=== PATIENT | female | born 1965 ===

== ENCOUNTER 2018-03-11 14:32 | Inpatient (IN) ==
[2018-03-11] MEDS ORDERED: DEXTROSE 50% 25 GM/50 ML VIAL IV PRN (17:18)
[2018-03-11] MEDS ORDERED: GLUCAGON 1 MG VIAL IM PRN (17:18)
[2018-03-11] MEDS ORDERED: LABETALOL 20 MG/4 ML SYRINGE IV PRN (17:47)
[2018-03-11 18:14] LABS: Basophils # 0.1 10*3/uL (0.0-0.2); Basophils % 0.8 % (0.0-0.8); Eosinophils # 0.2 10*3/uL (0.0-0.87); Eosinophils % 2.1 % (0.00-10.9); Hemoglobin 12.1 GM/DL (12.0-16.0); Immature Granulocytes % 0.3 %; Immature Granulocytes Absolute 0.04 #; Lymphocytes # 1.3 10*3/uL (1.4-4.0); Lymphocytes % 10.8 % (21.3-54.2); Mean Corpuscular HGB Conc 32.7 GM/DL (32-36); Mean Corpuscular Hemoglobin 29 PG (27-34); Mean Corpuscular Volume 88.3 FL (87-102); Mean Platelet Volume 9.3 FL (9.6-12.0); Monocytes # 0.6 10*3/uL (0.11-0.8); Monocytes % 4.7 % (1.7-12.7); Neutrophils # 9.5 10*3/uL (1.4-7.4); Neutrophils % 81.3 % (38.7-73.9); Platelet Count 374 T/CUMM (130-400); Red Blood Count 4.19 MC/CUMM (3.8-5.5); White Blood Count 11.7 T/CUMM (4-12)
[2018-03-11 18:30] LABS: Calcium 8.4 MG/DL (8.5-10.1); Osmolality,Calculated 301.3 MOS/KG (273-304); Potassium 4.5 MMOL/L (3.5-5.1)
[2018-03-11] MEDS: CARVEDILOL 25 MG TABLET PO SCH (20:06)
[2018-03-11] MEDS: SODIUM CHLORIDE 0.9% 1,000 ML IV SCH (20:11)
[2018-03-11 20:24] LABS: Apearance,Urine Slightly Hazy (Clear); Bilirubin,Urine Negative (Negative); Blood, Urine Small mg/dL (Negative); Glucose,Urine (UA) >=500 mg/dL (Negative); Ketones,Urine Negative (Negative); Mucus,Urine Occasional /LPF (Occasional); Nitrite,Urine Negative (Negative); Protein,Urine >=500 MG/DL; RBC,Urine 40 /HPF (0-4); Squamous Epithelial Cell,Urine Occasional /HPF (0-10); Urine Color Yellow (Yellow); Urine Urobilinogen < 2.0 EU/DL (0.2-1.0); WBC,Urine 2 /HPF (0-6)
[2018-03-11] MEDS: PRAVASTATIN 40 MG TABLET PO SCH (20:49)
[2018-03-11] MEDS: INSULIN LISPRO 100 UNIT/ML SUBCUT SCH (20:49)
[2018-03-12] MEDS: SODIUM CHLORIDE 0.9% 1,000 ML IV SCH ×2 (06:16→18:26)
[2018-03-12 06:35] LABS: Basophils # 0.1 10*3/uL (0.0-0.2); Basophils % 0.9 % (0.0-0.8); Eosinophils # 0.2 10*3/uL (0.0-0.87); Eosinophils % 2.2 % (0.00-10.9); Immature Granulocytes % 0.4 %; Immature Granulocytes Absolute 0.04 #; Lymphocytes # 1.4 10*3/uL (1.4-4.0); Lymphocytes % 13.9 % (21.3-54.2); Mean Corpuscular HGB Conc 32.4 GM/DL (32-36); Mean Corpuscular Hemoglobin 29 PG (27-34); Mean Corpuscular Volume 90.2 FL (87-102); Mean Platelet Volume 9.7 FL (9.6-12.0); Monocytes # 0.7 10*3/uL (0.11-0.8); Monocytes % 6.6 % (1.7-12.7); Neutrophils # 7.6 10*3/uL (1.4-7.4); Platelet Count 361 T/CUMM (130-400); Red Blood Count 3.77 MC/CUMM (3.8-5.5); White Blood Count 10.1 T/CUMM (4-12)
[2018-03-12 07:07] LABS: Calcium 7.4 MG/DL (8.5-10.1); Osmolality,Calculated 304.3 MOS/KG (273-304); Potassium 4.6 MMOL/L (3.5-5.1); Risk Ratio 5.18; VLDL CHOLESTEROL 49.2 MG/DL
[2018-03-12] MEDS: INSULIN LISPRO 100 UNIT/ML SUBCUT SCH ×4 (08:00→23:30)
[2018-03-12] MEDS ORDERED: CLOPIDOGREL 75 MG TABLET PO SCH (09:00)
[2018-03-12] MEDS ORDERED: ASPIRIN EC 81 MG TABLET PO SCH (09:00)
[2018-03-12] MEDS ORDERED: ASPIRIN 325 MG TABLET PO SCH (09:00)
[2018-03-12] MEDS: PANTOPRAZOLE 40 MG TABLET PO SCH (09:44)
[2018-03-12] MEDS: CARVEDILOL 25 MG TABLET PO SCH ×2 (09:44→18:22)
[2018-03-12] MEDS: ONDANSETRON 4 MG/2 ML VIAL IV PRN (10:40)
[2018-03-12 11:27] LABS: Hepatitis A Ab IgM Quant 0.26 Index; Hepatitis A Ab IgM Result Negative (Negative); Hepatitis B Core IgM Quant < 0.05 Index; Hepatitis B Core IgM Result Negative (Negative); Hepatitis B Surface Ag Quant 0.23 Index; Hepatitis B Surface Ag Result Negative (Negative); Hepatitis C Virus Ab Result Negative (Negative)
[2018-03-12] MEDS ORDERED: HEPARIN DRIP 25,000 UNITS/500 ML PREMIX IV SCH (15:00)
[2018-03-12] MEDS: PRAVASTATIN 40 MG TABLET PO SCH (22:06)
[2018-03-12] MEDS: APIXABAN 5 MG TABLET PO SCH (22:07)
[2018-03-13] MEDS: SODIUM CHLORIDE 0.9% 1,000 ML IV SCH ×3 (03:46→21:15)
[2018-03-13 06:48] LABS: Basophils # 0.1 10*3/uL (0.0-0.2); Basophils % 0.7 % (0.0-0.8); Eosinophils # 0.2 10*3/uL (0.0-0.87); Eosinophils % 1.6 % (0.00-10.9); Hematocrit 32.2 VOL% (35.7-47.0); Hemoglobin 10.2 GM/DL (12.0-16.0); Immature Granulocytes % 0.8 %; Immature Granulocytes Absolute 0.08 #; Lymphocytes # 1.4 10*3/uL (1.4-4.0); Lymphocytes % 14.2 % (21.3-54.2); Mean Corpuscular HGB Conc 31.7 GM/DL (32-36); Mean Corpuscular Hemoglobin 29 PG (27-34); Mean Corpuscular Volume 92.8 FL (87-102); Mean Platelet Volume 9.2 FL (9.6-12.0); Monocytes # 0.6 10*3/uL (0.11-0.8); Monocytes % 5.7 % (1.7-12.7); Neutrophils # 7.7 10*3/uL (1.4-7.4); Platelet Count 355 T/CUMM (130-400); Red Blood Count 3.47 MC/CUMM (3.8-5.5); Red Cell Distribution Width 13.9 % (9.3-17.3)
[2018-03-13 07:12] LABS: Calcium 7.4 MG/DL (8.5-10.1); Potassium 4.7 MMOL/L (3.5-5.1)
[2018-03-13] MEDS: INSULIN LISPRO 100 UNIT/ML SUBCUT SCH ×4 (10:38→22:21)
[2018-03-13] MEDS: APIXABAN 5 MG TABLET PO SCH ×2 (10:39→21:14)
[2018-03-13] MEDS: CARVEDILOL 25 MG TABLET PO SCH ×2 (10:39→18:27)
[2018-03-13] MEDS: PANTOPRAZOLE 40 MG TABLET PO SCH (10:39)
[2018-03-13] MEDS ORDERED: CLINDAMYCIN INJ 900 MG in PREMIX 1 EACH IV ONE (11:41)
[2018-03-13] MEDS ORDERED: PHENYLEPHRINE 1 MG/10 ML SYRINGE IV ONE (13:45)
[2018-03-13] MEDS ORDERED: HEPARIN 5,000 UNIT/1 ML VIAL ONE (13:45)
[2018-03-13] MEDS ORDERED: BUPIVACAINE 0.25% /EPI 10 ML VIAL ONE (13:45)
[2018-03-13] MEDS ORDERED: LIDOCAINE 1%/EPI INJ 20 ML VIAL ONE (13:45)
[2018-03-13] MEDS ORDERED: HEPARIN 10,000 UNIT/10 ML VIAL IV PRN (16:21)
[2018-03-13] MEDS: PRAVASTATIN 40 MG TABLET PO SCH (21:15)
[2018-03-14 06:50] LABS: Basophils % 0.4 % (0.0-0.8); Eosinophils % 0.1 % (0.00-10.9); Hematocrit 35.7 VOL% (35.7-47.0); Hemoglobin 11.4 GM/DL (12.0-16.0); Immature Granulocytes % 0.7 %; Immature Granulocytes Absolute 0.07 #; Lymphocytes # 1.4 10*3/uL (1.4-4.0); Lymphocytes % 12.6 % (21.3-54.2); Mean Corpuscular HGB Conc 31.9 GM/DL (32-36); Mean Corpuscular Hemoglobin 29 PG (27-34); Mean Corpuscular Volume 89.3 FL (87-102); Mean Platelet Volume 9.6 FL (9.6-12.0); Monocytes # 0.6 10*3/uL (0.11-0.8); Neutrophils # 8.6 10*3/uL (1.4-7.4); Neutrophils % 80.2 % (38.7-73.9); Platelet Count 383 T/CUMM (130-400); Red Cell Distribution Width 13.7 % (9.3-17.3); White Blood Count 10.8 T/CUMM (4-12)
[2018-03-14 07:22] LABS: Osmolality,Calculated 298.1 MOS/KG (273-304); Potassium 4.4 MMOL/L (3.5-5.1)
[2018-03-14] MEDS: SODIUM CHLORIDE 0.9% 1,000 ML IV SCH ×2 (07:27→23:06)
[2018-03-14] MEDS: CARVEDILOL 25 MG TABLET PO SCH ×2 (10:00→16:35)
[2018-03-14] MEDS: INSULIN LISPRO 100 UNIT/ML SUBCUT SCH ×4 (10:00→23:07)
[2018-03-14] MEDS: APIXABAN 5 MG TABLET PO SCH ×2 (10:01→23:06)
[2018-03-14] MEDS: PANTOPRAZOLE 40 MG TABLET PO SCH (10:01)
[2018-03-14] MEDS: ROSUVASTATIN 20 MG TABLET PO SCH (10:02)
[2018-03-14] MEDS: ONDANSETRON 4 MG/2 ML VIAL IV PRN (13:28)
[2018-03-14] MEDS ORDERED: ACETAMINOPHEN 325 MG TABLET PO PRN (18:07)
[2018-03-14] MEDS ORDERED: NITROGLYCERIN SL 0.4 MG TABLET SL ONE (19:55)
[2018-03-14] MEDS ORDERED: ASPIRIN EC 325 MG TABLET PO ONE (20:02)
[2018-03-15] MEDS: SODIUM CHLORIDE 0.9% 1,000 ML IV SCH ×2 (06:14→14:58)
[2018-03-15] MEDS: CARVEDILOL 25 MG TABLET PO SCH (09:09)
[2018-03-15] MEDS: INSULIN LISPRO 100 UNIT/ML SUBCUT SCH ×2 (13:20→14:58)
[2018-03-15 13:58] VITALS: BP 115/66
[2018-03-15] MEDS: ROSUVASTATIN 20 MG TABLET PO SCH (14:58)
[2018-03-15] MEDS: APIXABAN 5 MG TABLET PO SCH (14:58)
[2018-03-15] MEDS: PANTOPRAZOLE 40 MG TABLET PO SCH (14:58)
== END 2018-03-15 14:45 | DRG 64 ==
LOC: SUATTDRO 16:29 → N.5E 16:29
PROVIDERS: ADMIT Internal Medicine; ATTEND Internal Medicine

== ENCOUNTER 2018-03-21 16:26 | Inpatient (IN) ==
[2018-03-21 17:37] LABS: Basophils # 0.1 10*3/uL (0.0-0.2); Basophils % 0.2 % (0.0-0.8); Eosinophils # 0.1 10*3/uL (0.0-0.87); Eosinophils % 0.3 % (0.00-10.9); Hematocrit 33.2 VOL% (35.7-47.0); Hemoglobin 11.1 GM/DL (12.0-16.0); Immature Granulocytes % 0.5 %; Immature Granulocytes Absolute 0.13 #; Lymphocytes # 1.1 10*3/uL (1.4-4.0); Lymphocytes % 4.7 % (21.3-54.2); Mean Corpuscular HGB Conc 33.4 GM/DL (32-36); Mean Corpuscular Hemoglobin 30 PG (27-34); Mean Platelet Volume 10.8 FL (9.6-12.0); Monocytes # 2.2 10*3/uL (0.11-0.8); Monocytes % 9.3 % (1.7-12.7); Neutrophils # 20.3 10*3/uL (1.4-7.4); Platelet Count 282 T/CUMM (130-400); Red Blood Count 3.73 MC/CUMM (3.8-5.5); Red Cell Distribution Width 13.5 % (9.3-17.3); White Blood Count 23.9 T/CUMM (4-12)
[2018-03-21 17:46] LABS: INR 1.2; PT Patient Result 12.6 SECS
[2018-03-21 17:50] LABS: Lactic Acid 0.9 MMOL/L (0.4-2.0)
[2018-03-21 17:51] LABS: Apearance,Urine Slightly Hazy (Clear); Bacteria,Urine Occasional /HPF (Few); Bilirubin,Urine Negative (Negative); Blood, Urine Negative (Negative); Glucose,Urine (UA) >=500 mg/dL (Negative); Hyaline Casts,Urine 6 /LPF (0-3); Ketones,Urine Negative (Negative); Mucus,Urine Occasional /LPF (Occasional); Nitrite,Urine Negative (Negative); Protein,Urine >=500 MG/DL; RBC,Urine 8 /HPF (0-4); Squamous Epithelial Cell,Urine Occasional /HPF (0-10); Urine Color Yellow (Yellow); Urine Specific Gravity 1.017 (1.001-1.035); Urine Urobilinogen < 2.0 EU/DL (0.2-1.0); WBC,Urine 16 /HPF (0-6)
[2018-03-21 17:51] LABS: Bilirubin,Total 0.4 MG/DL (0.2-1.0); Calcium 7.9 MG/DL (8.5-10.1); Potassium 4.3 MMOL/L (3.5-5.1); Total Protein 5.5 G/DL (6.4-8.3)
[2018-03-21 18:15] LABS: Anisocytosis 1+; Band Neutrophils 6 % (0-10); Lymphocytes 7 % (20-55); Macrocytosis Slight; Platelet Estimate Normal; Segmented Neutrophils 79 % (50-85); Total Cells Counted 100
[2018-03-21] MEDS ORDERED: GLUCAGON 1 MG VIAL IM PRN (22:28)
[2018-03-21] MEDS ORDERED: SODIUM CHLORIDE 0.9% 500 ML IV ONE (22:28)
[2018-03-21] MEDS ORDERED: DEXTROSE 50% 25 GM/50 ML VIAL IV PRN (22:28)
[2018-03-21] MEDS ORDERED: ZALEPLON 5 MG CAPSULE PO PRN (22:28)
[2018-03-21] MEDS ORDERED: ONDANSETRON 4 MG/2 ML VIAL IV PRN (22:28)
[2018-03-21] MEDS ORDERED: ACETAMINOPHEN 325 MG TABLET PO PRN (22:28)
[2018-03-21] MEDS ORDERED: VANCOMYCIN INJ 500 MG in SODIUM CHLORIDE 0.9% 100 ML IV PRN (23:12)
[2018-03-21 23:13] LABS: Allen Test Positive; Pt O2 Delivery Device Room Air
[2018-03-21 23:14] LABS: ABG Base Excess 1.3 MMOL/L (-2.5-2.5); ABG HCO3 24.4 MMOL/L (20-26); ABG Oxygen Saturation 97.4 % (95-100); ABG PCO2 33.2 MM HG (35-48); ABG PH 7.485 (7.35-7.45); ABG PO2 104.4 MM HG (80-95); ABG TCO2 25.5 MMOL/L (23-27)
[2018-03-21] MEDS ORDERED: GENTAMICIN INJ 100 MG in PREMIX 1 EACH IV ONE (23:30)
[2018-03-21] MEDS ORDERED: VANCOMYCIN INJ 1,500 MG in SODIUM CHLORIDE 0.9% 500 ML IV ONE (23:30)
[2018-03-21] MEDS ORDERED: GENTAMICIN INJ 60 MG in SODIUM CHLORIDE 0.9% 100 ML IV PRN (23:33)
[2018-03-22] MEDS: APIXABAN 5 MG TABLET PO SCH ×3 (00:24→21:31)
[2018-03-22] MEDS: PRAVASTATIN 40 MG TABLET PO SCH ×2 (00:24→21:31)
[2018-03-22 06:22] LABS: Basophils % 0.2 % (0.0-0.8); Eosinophils # 0.2 10*3/uL (0.0-0.87); Eosinophils % 1.1 % (0.00-10.9); Hematocrit 29.6 VOL% (35.7-47.0); Hemoglobin 9.7 GM/DL (12.0-16.0); Immature Granulocytes % 0.5 %; Lymphocytes # 1.4 10*3/uL (1.4-4.0); Lymphocytes % 7.1 % (21.3-54.2); Mean Corpuscular HGB Conc 32.8 GM/DL (32-36); Mean Corpuscular Hemoglobin 29 PG (27-34); Mean Corpuscular Volume 89.7 FL (87-102); Mean Platelet Volume 10.5 FL (9.6-12.0); Monocytes # 2.1 10*3/uL (0.11-0.8); Monocytes % 10.5 % (1.7-12.7); Neutrophils # 16.4 10*3/uL (1.4-7.4); Neutrophils % 80.6 % (38.7-73.9); Platelet Count 292 T/CUMM (130-400); Red Cell Distribution Width 13.3 % (9.3-17.3); White Blood Count 20.3 T/CUMM (4-12)
[2018-03-22 06:55] LABS: Calcium 7.5 MG/DL (8.5-10.1); Osmolality,Calculated 277.8 MOS/KG (273-304); Potassium 3.7 MMOL/L (3.5-5.1)
[2018-03-22 07:09] LABS: Eosinophils 1 % (0-10); Hypochromasia 1+; Lymphocytes 6 % (20-55); Ovalocytes Slight; Platelet Estimate Adequate; Segmented Neutrophils 84 % (50-85); Total Cells Counted 100
[2018-03-22 07:10] LABS: Microcytosis Slight
[2018-03-22] MEDS ORDERED: SAXAGLIPTIN HCL 2.5 MG PO SCH (09:00)
[2018-03-22] MEDS: PANTOPRAZOLE 40 MG TABLET PO SCH (09:59)
[2018-03-22] MEDS ORDERED: BISACODYL 10 MG SUPP RECTAL ONE (10:23)
[2018-03-22] MEDS ORDERED: VANCOMYCIN INJ 500 MG in SODIUM CHLORIDE 0.9% 100 ML IV ONE (20:00)
[2018-03-22] MEDS ORDERED: GENTAMICIN INJ 60 MG in SODIUM CHLORIDE 0.9% 100 ML IV ONE (21:00)
[2018-03-23 06:16] LABS: Basophils # 0.1 10*3/uL (0.0-0.2); Basophils % 0.3 % (0.0-0.8); Eosinophils # 0.4 10*3/uL (0.0-0.87); Hematocrit 28.7 VOL% (35.7-47.0); Hemoglobin 9.6 GM/DL (12.0-16.0); Immature Granulocytes % 0.7 %; Immature Granulocytes Absolute 0.13 #; Lymphocytes # 1.6 10*3/uL (1.4-4.0); Lymphocytes % 8.4 % (21.3-54.2); Mean Corpuscular HGB Conc 33.4 GM/DL (32-36); Mean Corpuscular Hemoglobin 30 PG (27-34); Mean Corpuscular Volume 89.1 FL (87-102); Mean Platelet Volume 10.2 FL (9.6-12.0); Monocytes # 1.9 10*3/uL (0.11-0.8); Monocytes % 10.2 % (1.7-12.7); Neutrophils # 14.6 10*3/uL (1.4-7.4); Neutrophils % 78.4 % (38.7-73.9); Platelet Count 308 T/CUMM (130-400); Red Blood Count 3.22 MC/CUMM (3.8-5.5); Red Cell Distribution Width 13.2 % (9.3-17.3); White Blood Count 18.7 T/CUMM (4-12)
[2018-03-23 06:41] LABS: Calcium 8.1 MG/DL (8.5-10.1); Osmolality,Calculated 273.8 MOS/KG (273-304); Potassium 3.8 MMOL/L (3.5-5.1)
[2018-03-23] MEDS ORDERED: VANCOMYCIN INJ 500 MG in SODIUM CHLORIDE 0.9% 100 ML IV ONE (09:00)
[2018-03-23] MEDS: PANTOPRAZOLE 40 MG TABLET PO SCH (09:29)
[2018-03-23] MEDS: APIXABAN 5 MG TABLET PO SCH ×2 (09:29→21:35)
[2018-03-23] MEDS ORDERED: GENTAMICIN INJ 60 MG in SODIUM CHLORIDE 0.9% 100 ML IV ONE (10:00)
[2018-03-23] MEDS: PRAVASTATIN 40 MG TABLET PO SCH (21:35)
[2018-03-24 06:10] LABS: Basophils # 0.1 10*3/uL (0.0-0.2); Basophils % 0.4 % (0.0-0.8); Eosinophils # 0.4 10*3/uL (0.0-0.87); Eosinophils % 2.6 % (0.00-10.9); Hemoglobin 9.9 GM/DL (12.0-16.0); Immature Granulocytes % 0.7 %; Immature Granulocytes Absolute 0.11 #; Lymphocytes # 1.5 10*3/uL (1.4-4.0); Lymphocytes % 9.1 % (21.3-54.2); Mean Corpuscular HGB Conc 31.9 GM/DL (32-36); Mean Corpuscular Hemoglobin 29 PG (27-34); Mean Corpuscular Volume 91.4 FL (87-102); Monocytes # 1.7 10*3/uL (0.11-0.8); Monocytes % 10.5 % (1.7-12.7); Neutrophils # 12.6 10*3/uL (1.4-7.4); Neutrophils % 76.7 % (38.7-73.9); Platelet Count 350 T/CUMM (130-400); Red Blood Count 3.39 MC/CUMM (3.8-5.5); Red Cell Distribution Width 13.2 % (9.3-17.3); White Blood Count 16.3 T/CUMM (4-12)
[2018-03-24 06:28] LABS: Calcium 8.7 MG/DL (8.5-10.1); Osmolality,Calculated 283.4 MOS/KG (273-304); Potassium 3.9 MMOL/L (3.5-5.1)
[2018-03-24] MEDS: APIXABAN 5 MG TABLET PO SCH ×2 (08:53→22:40)
[2018-03-24] MEDS: PANTOPRAZOLE 40 MG TABLET PO SCH (08:53)
[2018-03-24] MEDS: PRAVASTATIN 40 MG TABLET PO SCH (22:40)
[2018-03-25 06:59] LABS: Gentamicin,Random 1.8 UG/ML; Vancomycin,Random 17.5 UG/ML
[2018-03-25] MEDS: PANTOPRAZOLE 40 MG TABLET PO SCH (08:08)
[2018-03-25] MEDS: APIXABAN 5 MG TABLET PO SCH (08:08)
[2018-03-25 08:23] LABS: Basophils # 0.1 10*3/uL (0.0-0.2); Basophils % 0.6 % (0.0-0.8); Eosinophils # 0.4 10*3/uL (0.0-0.87); Eosinophils % 3.3 % (0.00-10.9); Hematocrit 29.3 VOL% (35.7-47.0); Hemoglobin 9.6 GM/DL (12.0-16.0); Immature Granulocytes % 0.5 %; Immature Granulocytes Absolute 0.06 #; Lymphocytes # 1.6 10*3/uL (1.4-4.0); Lymphocytes % 13.3 % (21.3-54.2); Mean Corpuscular HGB Conc 32.8 GM/DL (32-36); Mean Corpuscular Hemoglobin 29 PG (27-34); Mean Corpuscular Volume 89.3 FL (87-102); Mean Platelet Volume 9.9 FL (9.6-12.0); Monocytes # 1.5 10*3/uL (0.11-0.8); Monocytes % 12.1 % (1.7-12.7); Neutrophils # 8.7 10*3/uL (1.4-7.4); Neutrophils % 70.2 % (38.7-73.9); Platelet Count 367 T/CUMM (130-400); Red Blood Count 3.28 MC/CUMM (3.8-5.5); Red Cell Distribution Width 13.1 % (9.3-17.3); White Blood Count 12.3 T/CUMM (4-12)
[2018-03-25 10:49] LABS: Calcium 8.2 MG/DL (8.5-10.1); Osmolality,Calculated 283.4 MOS/KG (273-304); Potassium 4.1 MMOL/L (3.5-5.1)
[2018-03-25] MEDS: BISACODYL 5 MG TABLET PO SCH ×2 (14:27→17:40)
[2018-03-25] MEDS ORDERED: POLYETHYLENE GLYCOL 3350/ELECTROLYTES 4,000 ML BOTTLE NG ONE (18:00)
[2018-03-25] MEDS ORDERED: POLYETHYLENE GLYCOL 3350/ELECTROLYTES 4,000 ML BOTTLE PO ONE (18:00)
[2018-03-25] MEDS ORDERED: GENTAMICIN INJ 60 MG in SODIUM CHLORIDE 0.9% 100 ML IV ONE (20:00)
[2018-03-25] MEDS ORDERED: MAGNESIUM CITRATE 300 ML BOTTLE PO ONE (21:00)
[2018-03-25] MEDS ORDERED: VANCOMYCIN INJ 500 MG in SODIUM CHLORIDE 0.9% 100 ML IV ONE (21:00)
[2018-03-25] MEDS: PRAVASTATIN 40 MG TABLET PO SCH (22:12)
[2018-03-26] MEDS: BISACODYL 5 MG TABLET PO SCH (03:52)
[2018-03-26 07:02] LABS: Basophils # 0.1 10*3/uL (0.0-0.2); Basophils % 0.5 % (0.0-0.8); Eosinophils # 0.3 10*3/uL (0.0-0.87); Eosinophils % 2.3 % (0.00-10.9); Hematocrit 29.4 VOL% (35.7-47.0); Hemoglobin 9.5 GM/DL (12.0-16.0); Immature Granulocytes % 0.8 %; Immature Granulocytes Absolute 0.09 #; Lymphocytes # 1.2 10*3/uL (1.4-4.0); Lymphocytes % 10.1 % (21.3-54.2); Mean Corpuscular HGB Conc 32.3 GM/DL (32-36); Mean Corpuscular Hemoglobin 29 PG (27-34); Mean Corpuscular Volume 88.8 FL (87-102); Mean Platelet Volume 9.6 FL (9.6-12.0); Monocytes # 1.3 10*3/uL (0.11-0.8); Monocytes % 11.1 % (1.7-12.7); Neutrophils % 75.2 % (38.7-73.9); Platelet Count 348 T/CUMM (130-400); Red Blood Count 3.31 MC/CUMM (3.8-5.5); Red Cell Distribution Width 13.2 % (9.3-17.3)
[2018-03-26 07:27] LABS: Calcium 8.2 MG/DL (8.5-10.1); Osmolality,Calculated 280.5 MOS/KG (273-304); Potassium 4.2 MMOL/L (3.5-5.1)
[2018-03-26] MEDS: PANTOPRAZOLE 40 MG TABLET PO SCH (08:00)
[2018-03-26] MEDS: POLYETHYLENE GLYCOL POWDER 17 GM PACK PO SCH ×2 (08:50→23:14)
[2018-03-26] MEDS ORDERED: PHENYLEPHRINE 1 MG/10 ML SYRINGE IV ONE (10:00)
[2018-03-26] MEDS ORDERED: ETOMIDATE 20 MG/10 ML VIAL IV ONE (10:00)
[2018-03-26] MEDS ORDERED: LIDOCAINE 2% 5 ML VIAL ONE (10:00)
[2018-03-26] MEDS ORDERED: PROPOFOL 200 MG/20 ML VIAL IV ONE (10:00)
[2018-03-26] MEDS: PRAVASTATIN 40 MG TABLET PO SCH (23:13)
[2018-03-27 06:46] LABS: Basophils # 0.1 10*3/uL (0.0-0.2); Basophils % 0.7 % (0.0-0.8); Eosinophils # 0.4 10*3/uL (0.0-0.87); Eosinophils % 3.6 % (0.00-10.9); Hematocrit 28.6 VOL% (35.7-47.0); Immature Granulocytes % 1.1 %; Immature Granulocytes Absolute 0.11 #; Lymphocytes # 1.7 10*3/uL (1.4-4.0); Lymphocytes % 16.6 % (21.3-54.2); Mean Corpuscular HGB Conc 31.5 GM/DL (32-36); Mean Corpuscular Hemoglobin 29 PG (27-34); Mean Platelet Volume 9.3 FL (9.6-12.0); Monocytes # 1.1 10*3/uL (0.11-0.8); Monocytes % 11.2 % (1.7-12.7); Neutrophils # 6.7 10*3/uL (1.4-7.4); Neutrophils % 66.8 % (38.7-73.9); Platelet Count 339 T/CUMM (130-400); Red Blood Count 3.11 MC/CUMM (3.8-5.5); Red Cell Distribution Width 13.1 % (9.3-17.3)
[2018-03-27 07:24] LABS: Calcium 8.1 MG/DL (8.5-10.1); Osmolality,Calculated 285.4 MOS/KG (273-304); Potassium 3.9 MMOL/L (3.5-5.1)
[2018-03-27] MEDS: PANTOPRAZOLE 40 MG TABLET PO SCH (09:00)
[2018-03-27] MEDS: POLYETHYLENE GLYCOL POWDER 17 GM PACK PO SCH ×2 (09:00→21:04)
[2018-03-27] MEDS ORDERED: HEPARIN 10,000 UNIT/10 ML VIAL IV PRN (13:11)
[2018-03-27] MEDS ORDERED: GENTAMICIN INJ 60 MG in SODIUM CHLORIDE 0.9% 100 ML IV ONE (16:00)
[2018-03-27] MEDS ORDERED: VANCOMYCIN INJ 500 MG in SODIUM CHLORIDE 0.9% 100 ML IV ONE (17:00)
[2018-03-27] MEDS: PRAVASTATIN 40 MG TABLET PO SCH (21:04)
[2018-03-28] MEDS: POLYETHYLENE GLYCOL POWDER 17 GM PACK PO SCH ×2 (08:58→21:36)
[2018-03-28] MEDS: PANTOPRAZOLE 40 MG TABLET PO SCH (08:58)
[2018-03-28] MEDS: PRAVASTATIN 40 MG TABLET PO SCH (21:36)
[2018-03-29] MEDS: PANTOPRAZOLE 40 MG TABLET PO SCH (08:12)
[2018-03-29] MEDS: APIXABAN 5 MG TABLET PO SCH ×2 (08:12→22:04)
[2018-03-29] MEDS: POLYETHYLENE GLYCOL POWDER 17 GM PACK PO SCH ×2 (08:12→22:04)
[2018-03-29] MEDS ORDERED: TUBERCULIN SKIN TEST 0.1 ML SYRINGE INTRADERM ONE (09:38)
[2018-03-29] MEDS ORDERED: HEPARIN 10,000 UNIT/10 ML VIAL IV PRN (13:23)
[2018-03-29] MEDS ORDERED: ALTEPLASE 2 MG VIAL IV ONE (13:30)
[2018-03-29] MEDS ORDERED: GENTAMICIN INJ 60 MG in SODIUM CHLORIDE 0.9% 100 ML IV ONE (20:00)
[2018-03-29] MEDS ORDERED: VANCOMYCIN INJ 500 MG in SODIUM CHLORIDE 0.9% 100 ML IV ONE (21:00)
[2018-03-29] MEDS: PRAVASTATIN 40 MG TABLET PO SCH (22:04)
[2018-03-29] MEDS: ACETAMINOPHEN 325 MG TABLET PO PRN (22:06)
[2018-03-30] MEDS: APIXABAN 5 MG TABLET PO SCH ×2 (09:55→21:50)
[2018-03-30] MEDS: PANTOPRAZOLE 40 MG TABLET PO SCH (09:55)
[2018-03-30] MEDS: POLYETHYLENE GLYCOL POWDER 17 GM PACK PO SCH ×2 (09:55→21:53)
[2018-03-30] MEDS: PRAVASTATIN 40 MG TABLET PO SCH (21:50)
[2018-03-31] MEDS: APIXABAN 5 MG TABLET PO SCH ×2 (09:24→20:46)
[2018-03-31] MEDS: PANTOPRAZOLE 40 MG TABLET PO SCH (09:24)
[2018-03-31] MEDS: POLYETHYLENE GLYCOL POWDER 17 GM PACK PO SCH ×2 (09:25→20:46)
[2018-03-31] MEDS: CARVEDILOL 25 MG TABLET PO SCH (20:46)
[2018-03-31] MEDS: PRAVASTATIN 40 MG TABLET PO SCH (20:46)
[2018-04-01] MEDS ORDERED: POLYVINYL ALCOHOL 1.4% OPH SOLN 15 ML BOTTLE BOTH EYES PRN (03:33)
[2018-04-01 06:28] LABS: Basophils # 0.1 10*3/uL (0.0-0.2); Basophils % 0.5 % (0.0-0.8); Eosinophils # 0.5 10*3/uL (0.0-0.87); Eosinophils % 4.1 % (0.00-10.9); Hemoglobin 8.9 GM/DL (12.0-16.0); Immature Granulocytes Absolute 0.11 #; Lymphocytes # 1.7 10*3/uL (1.4-4.0); Lymphocytes % 15.5 % (21.3-54.2); Mean Corpuscular HGB Conc 31.8 GM/DL (32-36); Mean Corpuscular Hemoglobin 29 PG (27-34); Mean Corpuscular Volume 91.5 FL (87-102); Mean Platelet Volume 9.6 FL (9.6-12.0); Monocytes % 8.6 % (1.7-12.7); Neutrophils # 7.9 10*3/uL (1.4-7.4); Neutrophils % 70.3 % (38.7-73.9); Platelet Count 327 T/CUMM (130-400); Red Blood Count 3.06 MC/CUMM (3.8-5.5); Red Cell Distribution Width 13.6 % (9.3-17.3); White Blood Count 11.3 T/CUMM (4-12)
[2018-04-01 06:55] LABS: Calcium 8.5 MG/DL (8.5-10.1); Osmolality,Calculated 283.4 MOS/KG (273-304); Potassium 4.3 MMOL/L (3.5-5.1)
[2018-04-01] MEDS: POLYETHYLENE GLYCOL POWDER 17 GM PACK PO SCH ×2 (09:55→21:17)
[2018-04-01] MEDS: APIXABAN 5 MG TABLET PO SCH ×2 (15:44→21:17)
[2018-04-01] MEDS: CARVEDILOL 25 MG TABLET PO SCH ×2 (15:45→16:06)
[2018-04-01] MEDS: PANTOPRAZOLE 40 MG TABLET PO SCH (15:45)
[2018-04-01] MEDS: PRAVASTATIN 40 MG TABLET PO SCH (21:17)
[2018-04-02] MEDS: PANTOPRAZOLE 40 MG TABLET PO SCH (09:42)
[2018-04-02] MEDS: POLYETHYLENE GLYCOL POWDER 17 GM PACK PO SCH ×2 (09:42→22:08)
[2018-04-02] MEDS: APIXABAN 5 MG TABLET PO SCH ×2 (09:42→22:08)
[2018-04-02] MEDS: CARVEDILOL 25 MG TABLET PO SCH ×2 (09:42→17:37)
[2018-04-02] MEDS: PRAVASTATIN 40 MG TABLET PO SCH (22:08)
[2018-04-03] MEDS: CARVEDILOL 25 MG TABLET PO SCH ×2 (08:23→16:02)
[2018-04-03] MEDS: PANTOPRAZOLE 40 MG TABLET PO SCH (08:23)
[2018-04-03] MEDS: POLYETHYLENE GLYCOL POWDER 17 GM PACK PO SCH ×2 (08:23→20:31)
[2018-04-03] MEDS: APIXABAN 5 MG TABLET PO SCH ×2 (08:23→20:31)
[2018-04-03] MEDS ORDERED: ALBUMIN 25% 25 GM in PREMIX 1 EACH IV SCH (11:30)
[2018-04-03] MEDS ORDERED: ALBUMIN 25% 25 GM in PREMIX 1 EACH IV ONE (11:30)
[2018-04-03] MEDS: PRAVASTATIN 40 MG TABLET PO SCH (20:31)
[2018-04-04] MEDS: PANTOPRAZOLE 40 MG TABLET PO SCH (08:21)
[2018-04-04] MEDS: APIXABAN 5 MG TABLET PO SCH ×2 (08:21→23:20)
[2018-04-04] MEDS: CARVEDILOL 25 MG TABLET PO SCH ×2 (08:21→17:01)
[2018-04-04] MEDS: POLYETHYLENE GLYCOL POWDER 17 GM PACK PO SCH ×2 (08:22→23:21)
[2018-04-04] MEDS: PRAVASTATIN 40 MG TABLET PO SCH (23:21)
[2018-04-05] MEDS: CARVEDILOL 25 MG TABLET PO SCH ×2 (10:30→16:40)
[2018-04-05] MEDS: APIXABAN 5 MG TABLET PO SCH ×2 (10:49→20:48)
[2018-04-05] MEDS: POLYETHYLENE GLYCOL POWDER 17 GM PACK PO SCH ×2 (10:49→20:48)
[2018-04-05] MEDS: PANTOPRAZOLE 40 MG TABLET PO SCH (10:49)
[2018-04-05] MEDS: PRAVASTATIN 40 MG TABLET PO SCH (20:47)
[2018-04-05] MEDS: ACETAMINOPHEN 325 MG TABLET PO PRN (20:47)
[2018-04-06] MEDS: PANTOPRAZOLE 40 MG TABLET PO SCH (08:38)
[2018-04-06] MEDS: CARVEDILOL 25 MG TABLET PO SCH ×2 (08:39→16:57)
[2018-04-06] MEDS: APIXABAN 5 MG TABLET PO SCH ×2 (08:39→20:59)
[2018-04-06] MEDS: POLYETHYLENE GLYCOL POWDER 17 GM PACK PO SCH ×2 (16:57→20:59)
[2018-04-06] MEDS: PRAVASTATIN 40 MG TABLET PO SCH (20:59)
[2018-04-07 06:08] LABS: Basophils # 0.1 10*3/uL (0.0-0.2); Basophils % 0.6 % (0.0-0.8); Eosinophils # 0.3 10*3/uL (0.0-0.87); Eosinophils % 3.5 % (0.00-10.9); Hematocrit 28.3 VOL% (35.7-47.0); Hemoglobin 8.9 GM/DL (12.0-16.0); Immature Granulocytes % 0.4 %; Immature Granulocytes Absolute 0.04 #; Lymphocytes # 1.5 10*3/uL (1.4-4.0); Lymphocytes % 16.5 % (21.3-54.2); Mean Corpuscular HGB Conc 31.4 GM/DL (32-36); Mean Corpuscular Hemoglobin 29 PG (27-34); Mean Corpuscular Volume 92.5 FL (87-102); Mean Platelet Volume 9.9 FL (9.6-12.0); Monocytes % 10.9 % (1.7-12.7); Neutrophils # 6.4 10*3/uL (1.4-7.4); Neutrophils % 68.1 % (38.7-73.9); Platelet Count 351 T/CUMM (130-400); Red Blood Count 3.06 MC/CUMM (3.8-5.5); Red Cell Distribution Width 14.1 % (9.3-17.3); White Blood Count 9.4 T/CUMM (4-12)
[2018-04-07 06:30] LABS: Calcium 8.6 MG/DL (8.5-10.1); Osmolality,Calculated 272.8 MOS/KG (273-304); Potassium 4.4 MMOL/L (3.5-5.1)
[2018-04-07] MEDS: CARVEDILOL 25 MG TABLET PO SCH ×2 (08:38→17:09)
[2018-04-07] MEDS: APIXABAN 5 MG TABLET PO SCH ×2 (08:38→20:26)
[2018-04-07] MEDS: PANTOPRAZOLE 40 MG TABLET PO SCH (08:38)
[2018-04-07] MEDS: POLYETHYLENE GLYCOL POWDER 17 GM PACK PO SCH ×2 (08:38→20:26)
[2018-04-07] MEDS: PRAVASTATIN 40 MG TABLET PO SCH (20:27)
[2018-04-08] MEDS: PANTOPRAZOLE 40 MG TABLET PO SCH (08:47)
[2018-04-08] MEDS: APIXABAN 5 MG TABLET PO SCH ×2 (08:47→20:24)
[2018-04-08] MEDS: CARVEDILOL 25 MG TABLET PO SCH ×2 (08:47→18:08)
[2018-04-08] MEDS: POLYETHYLENE GLYCOL POWDER 17 GM PACK PO SCH ×2 (08:48→20:25)
[2018-04-08] MEDS: ACETAMINOPHEN 325 MG TABLET PO PRN ×3 (08:55→20:25)
[2018-04-08] MEDS: PRAVASTATIN 40 MG TABLET PO SCH (20:25)
[2018-04-09] MEDS: PANTOPRAZOLE 40 MG TABLET PO SCH (10:03)
[2018-04-09] MEDS: CARVEDILOL 25 MG TABLET PO SCH ×2 (10:03→17:11)
[2018-04-09] MEDS: APIXABAN 5 MG TABLET PO SCH (10:03)
[2018-04-09] MEDS: ACETAMINOPHEN 325 MG TABLET PO PRN (10:03)
[2018-04-09] MEDS: POLYETHYLENE GLYCOL POWDER 17 GM PACK PO SCH (10:04)
[2018-04-09 16:19] VITALS: BP 129/69
== END 2018-04-09 17:05 | DRG 393 ==
LOC: EDBD → EDUNIT# → N.ED 16:26 → SUATTDRO 19:29 → N.EDINP 19:29 → N.5E 20:44
PROVIDERS: ADMIT Internal Medicine; ATTEND Hospitalist